=== PATIENT | female | born 1960 | race African-American/Black ===

== ENCOUNTER 2018-07-25 15:46 | Emergency (ER) | payer MEDICAID, OTHER ==
[~2018-07-25] VITALS: Ht 188 cm; Wt 90.0 kg
[2018-07-25 16:11] VITALS: BP 129/80
== END 2018-07-25 19:30 | disposition left against medical advice (07) ==
LOC: ER 15:46
DX: Z53.21 Procedure and treatment not carried out due to patient leaving prior to being seen by health care provider (principal)